=== PATIENT | female | born 1955 | race Caucasian/White ===

== ENCOUNTER 2019-11-04 00:36 | Emergency (ER) | payer OTHER ==
[~2019-11-04] VITALS: Ht 160 cm; Wt 70.0 kg
[2019-11-04] MEDS ORDERED: ONDANSETRON 2MG/ML, 2ML IVPush ONE (01:00)
[2019-11-04] MEDS ORDERED: MORPHINE SULFATE 4 MG/ML, 1ML IVPush ONE (01:00)
[2019-11-04 01:21] LABS: BASOPHILS # (AUTO) 0.04 x10^3/uL (0-0.1); BASOPHILS % (AUTO) 0 % (0-1); EOSINOPHILS # (AUTO) 0.03 x10^3/uL (0-0.4); EOSINOPHILS % (AUTO) 0 % (1-7); LYMPHOCYTES # (AUTO) 1.17 x10^3/uL (1-3.4); LYMPHOCYTES % (AUTO) 10 % (22-44); MD NO; MEAN CORPUSCULAR HEMOGLOBIN 30.9 pg (27.0-34.8); MEAN CORPUSCULAR HGB CONC 33.5 g/dL (32.4-35.8); MEAN CORPUSCULAR VOLUME 92.3 fL (80-100); MEAN PLATELET VOLUME 9.1 fL (7.4-10.4); MONOCYTES % (AUTO) 10 % (2-9); NEUTROPHILS # (AUTO) 9.08 x10^3/uL (1.8-6.8); NEUTROPHILS % (AUTO) 80 % (42-75); PLATELET COUNT 256 x10^3/uL (130-400); RED BLOOD COUNT 4.71 x10^6/uL (3.82-5.3); RED CELL DISTRIBUTION WIDTH 13.1 % (9.6-15.2)
[2019-11-04 01:27] LABS: ALBUMIN 3.5 g/dL (3.4-5.0); ANION GAP 10 mmol/L (5-15); CALCIUM 8.3 mg/dL (8.5-10.1); CHLORIDE 107 mmol/L (98-107); CREATININE 0.83 mg/dL (0.55-1.02)
[2019-11-04] MEDS ORDERED: HYDROmorphone 1 MG/ML, 1ML INJ IV ONE (01:30)
[2019-11-04] MEDS ORDERED: HYDROmorphone 1 MG/ML, 1ML INJ ONE (01:39)
[2019-11-04] MEDS ORDERED: ONDANSETRON 2MG/ML, 2ML ONE (01:39)
[2019-11-04 01:47] LABS: MICROSCOPIC INDICATED
--- NOTE | 2019-11-04 01:50 | NUR ---
PT HERE FOR LLQ PAIN WITH BLOODY STOOLS. PT HAS HX OF DIVERTICULITIS. PIV STARTED AND PT MEDICATED FOR PAIN AND NAUSEA. PT TO CT.
--- NOTE | 2019-11-04 03:13 | NUR ---
PT RESTING WITH NO NEEDS AT THIS TIME. WAITING FOR CT RESULTS. CALL LIGHT IN REACH
[2019-11-04 03:36] VITALS: BP 138/73
[2019-11-04] MEDS ORDERED: OMNIPAQUE 350 MG/ML, 100ML BOTTLE ONE (03:43)
== END 2019-11-04 03:38 | disposition home or self-care (01) ==
LOC: ED 03:00
DX: A09 Infectious gastroenteritis and colitis, unspecified (principal); R10.32 Left lower quadrant pain; K64.4 Residual hemorrhoidal skin tags; K58.0 Irritable bowel syndrome with diarrhea
CPT/HCPCS: 36415; 74177; 80048; 81001; 82040; 85025; 96374; 96375; 99285; J1170; J2405; Q9967